=== PATIENT | female | born 1975 | race African-American/Black ===

== ENCOUNTER 2019-09-30 21:19 | Emergency (ER) | payer MEDICARE, OTHER ==
[2019-09-30 21:38] VITALS: RESP 18
[2019-09-30 22:27] VITALS: PULSE 97
[2019-09-30] MEDS ORDERED: ACETAMINOPHEN TAB 500 MG TAB PO STA (22:31)
[2019-09-30 22:48] LABS: Appearance,Urine Clear (Clear); Bilirubin,Urine Negative (Negative); Blood,Urine Negative (Negative); Color,Urine Yellow; Glucose,Urine (UA) Negative (Negative); Ketones,Urine Negative (Negative); Leukocyte Esterase,Urine Trace (Negative); Mucus,Urine Few /hpf; Nitrite,Urine Negative (Negative); PH, Urine 5.5 (5.0-8.0); Protein,Urine Negative (Negative); RBC,Urine 1 /hpf (0-5); Specific Gravity,Urine 1.016 (1.001-1.035); Squamous Epithelial Cell,Urine 2 /hpf (0-4); Urobilinogen,Urine <2.0 mg/dL (<2.0); WBC,Urine 4 /hpf (0-5)
[2019-09-30 23:01] LABS: Amphetamine Screen,Urine Not Detected (NotDetected); Barbiturate Screen,Urine Not Detected (NotDetected); Benzodiazepines Screen,Urine Not Detected (NotDetected); Cocaine Screen,Urine Not Detected (NotDetected); Methadone Screen, Urine Not Detected (NotDetected); Opiate Screen,Urine Not Detected (NotDetected); Oxycodone Screen, Urine Not Detected (NotDetected); Phencyclidine Screen,Urine Not Detected (NotDetected); Tricyclic Antidepressant,Urine Not Detected (NotDetected); Urn Cannabinoid Scrn Detected (NotDetected)
[2019-09-30 23:38] VITALS: BP 127/70; TEMP 100.4
--- NOTE | 2019-10-01 01:40 | ED ---
Altered Mental Status HPI - General Chief Complaint: Altered Mental Status Stated Complaint: Mental Health Time Seen by Provider: 09/30/19 21:32 Source: patient, EMS Mode of arrival: EMS Limitations: altered mental status - History of Present Illness Initial Comments: Patient is a 43-year-old female brought to the emergency department via EMS for confusion. Patient states she is a resident of [place] and she was looking to obtain a place report so she [place] at the [facility]. EMS was called for concerns of confusion. Patient is alert and oriented at this time. She states that she looking for a police report in order to look for a new physician. Her [place] was [place] border [place] and her son was contacted. Her son went to pickle solution maker the car and came to the emergency department. He states that his mother has periods of insomnia where she becomes for confused after not sleeping for several days. States this has previously occurred several times. Patient denies any suicidal, homicidal thoughts or ideations. Patient has no other medical complaints. - Related Data Home Medications Medication Instructions Recorded Confirmed Gabapentin [Neurontin] 300 mg PO BID PRN 09/30/19 09/30/19 traZODone HCL 150 mg PO HS PRN 09/30/19 09/30/19 Allergies Allergy/AdvReac Type Severity Reaction Status Date / Time Penicillins Allergy Rash/Hives Verified 09/30/19 22:36 acetaminophen [From Vicodin] AdvReac Nausea Verified 09/30/19 22:36 hydrocodone [From Vicodin] AdvReac Nausea Verified 09/30/19 22:36 metoclopramide [From Reglan] AdvReac Confusion Verified 09/30/19 22:36 morphine AdvReac Nausea & Verified 09/30/19 22:36 Vomiting Review of Systems ROS Statement: Those systems with pertinent positive or pertinent negative responses have been documented in the HPI. ROS Other: All systems not noted in ROS Statement are negative. Past Medical History Past Medical History: Hypertension Additional Past Medical History / Comment(s): Brain tumors History of Any Multi-Drug Resistant Organisms: None Reported Past Psychological History: Anxiety Smoking Status: Never smoker Past Alcohol Use History: Occasional Past Drug Use History: Marijuana General Exam Limitations: altered mental status General appearance: alert, in no apparent distress Head exam: Present: atraumatic, normocephalic, normal inspection Eye exam: Present: normal appearance, PERRL, EOMI. Absent: scleral icterus, conjunctival injection, nystagmus Pupils: Present: normal accommodation ENT exam: Present: normal exam, normal oropharynx, mucous membranes moist, TM's normal bilaterally, normal external ear exam Neck exam: Present: normal inspection, full ROM. Absent: lymphadenopathy Respiratory exam: Present: normal lung sounds bilaterally. Absent: respiratory distress, wheezes Cardiovascular Exam: Present: regular rate, normal rhythm, normal heart sounds Extremities exam: Present: normal inspection, full ROM. Absent: tenderness Back exam: Present: normal inspection, full ROM. Absent: tenderness Neurological exam: Present: alert, oriented X3, CN II-XII intact, normal gait Psychiatric exam: Present: normal affect, normal mood, depressed Skin exam: Present: warm, dry, intact, normal color. Absent: rash Course Vital Signs 09/30/19 09/30/19 09/30/19 21:22 22:26 22:47 Temperature 100.4 F H 100.5 F H 99.7 F H Pulse Rate 114 H 97 Respiratory 18 18 Rate Blood Pressure 144/93 131/85 O2 Sat by Pulse 100 98 Oximetry 09/30/19 23:36 Temperature 100.4 F H Pulse Rate 97 Respiratory 18 Rate Blood Pressure 127/70 O2 Sat by Pulse 100 Oximetry Medical Decision Making - Medical Decision Making Patient is a 43-year-old female brought to the emergency department via [place] for possible confusion. On evaluation patient is alert and oriented. She is not in any distress, not pacing the room, not threat to self or others. Patient does appear to have slight fever 100.4. Patient is denying any medical complaints at this time. Patient was offered laboratory work but she refused. UA obtained and shows no signs of urinary tract infection. Urine drug screen reveals po sitive marijuana. Son is also present in the room who states the patient does have episodes of confusion when she does not sleep for several days. She does have history of insomnia. States this is quite typical for her. States he would like to take his mother home at this time. Patient was offered psychiatric evaluation, she declined. Patient does not appear psychotic. personally evaluated the patient and is in agreement with the treatment plan. Return parameters were thoroughly discussed with patient and son were understanding and agreeable. - Lab Data Lab Results 09/30/19 Range/Units 22:31 Urine Color Yellow Urine Appearance Clear (Clear) Urine pH 5.5 (5.0-8.0) Ur Specific [place] 1.016 (1.001-1.035) Urine Protein Negative (Negative) Urine Glucose (UA) Negative (Negative) Urine Ketones Negative (Negative) Urine Blood Negative (Negative) Urine Nitrite Negative (Negative) Urine Bilirubin Negative (Negative) Urine Urobilinogen <2.0 (<2.0) mg/dL Ur Leukocyte Esterase Trace H (Negative) Urine RBC 1 (0-5) /hpf Urine WBC 4 (0-5) /hpf Ur Squamous Epith Cells 2 (0-4) /hpf Urine Mucus Few H (None) /hpf Urine Opiates Screen Not Detected (NotDetected) Ur Oxycodone Screen Not Detected (NotDetected) Urine Methadone Screen Not Detected (NotDetected) Ur Propoxyphene Screen Not Detected (NotDetected) Ur Barbiturates Screen Not Detected (NotDetected) U Tricyclic Antidepress Not Detected (NotDetected) Ur Phencyclidine Scrn Not Detected (NotDetected) Ur Amphetamines Screen Not Detected (NotDetected) U Methamphetamines Scrn Not Detected (NotDetected) U Benzodiazepines Scrn Not Detected (NotDetected) Urine Cocaine Screen Not Detected (NotDetected) U Marijuana (THC) Screen Detected H (NotDetected) Disposition Clinical Impression: Confusion Disposition: HOME SELF-CARE Condition: Good Instructions (If sedation given, give patient instructions): Altered Mental Status (ED) Additional Instructions: Please follow up with her primary care. Return to emergency department if symptoms worsen. Is patient prescribed a controlled substance at d/c from ED?: No Referrals: None,Stated [Primary Care Provider] - 1-2 days Time of Disposition: 00:02
== END 2019-09-30 23:36 | disposition home or self-care (01) ==
LOC: EC 21:19
DX: R41.0 Disorientation, unspecified (principal); R50.9 Fever, unspecified; R78.4 Finding of other drugs of addictive potential in blood; G47.00 Insomnia, unspecified; F41.9 Anxiety disorder, unspecified; Z88.0 Allergy status to penicillin; Z88.5 Allergy status to narcotic agent; Z88.8 Allergy status to other drugs, medicaments and biological substances
CPT/HCPCS: 80306; 81001; 99285